=== PATIENT | male | born 1995 | race Caucasian/White ===

== ENCOUNTER 2017-09-24 22:26 | Emergency (ER) | payer BC ==
[~2017-09-24] VITALS: Ht 177.8 cm; Wt 84.7 kg
[2017-09-24 22:31] VITALS: TEMP 36.4; Ht 177.8 cm; Wt 84.7 kg
[2017-09-24] MEDS ORDERED: KETOROLAC TROMETHAMINE 30 MG/ML VIAL IV STA (23:16)
[2017-09-24] MEDS ORDERED: LORAZEPAM 2 MG/ML 1 ML VIAL IV STA (23:16)
[2017-09-24] MEDS ORDERED: SODIUM CHLORIDE 0.9% 1000ML 1,000 ML IV STA (23:16)
--- NOTE | 2017-09-24 23:29 | EMERGENCY ROOM VISIT NOTE ---
History Report prepared by Donya: Faye Pyle Under the Supervision of: Dr. Paul Finley M.D. First contact with patient: 23:03 Chief Complaint: FACIAL PAIN/INJURY Stated Complaint: LEFT SIDE OF FACE/NECK HURTS History of Present Illness The patient is a 22 year old male who presents to the Emergency Room with complaints of left-sided "throbbing" neck pain. He states that a few weeks ago he strained his neck and believed that it fixed itself. He then states that he was lifting weights earlier today and began to notice that he was unable to turn his head to the right and he had a "throbbing" pain on the left side of his neck. The patient states that he feels a pressure in his head and ear, and feels the pain radiating to his shoulder and jaw. He ignored this pain until he was starting to go to bed and began to feel "funny," have a headache, and "feel slow." The patient denies any nausea, vomiting, double vision, pulsating vision , or back pain. He also denies taking a lot of aspirin or ibuprofen recently. He states that he does have a family history of hypertension. He reports previously having a tonsillectomy several years ago, and also denies any allergies. Source of History: patient Onset: today Position: neck Quality: other (throbbing) Modifying Factors (Worsening): movement (to the right) Associated Symptoms: + headache, No nausea, No vomiting, No back pain Note: additional symptoms: unable to turn head to the right, pressure in ear, radiating pain to the shoulder and jaw, feeling "funny" and "slow." Review of Systems See HPI for pertinent positives & negatives. A total of 10 systems reviewed and were otherwise negative. Family History FHx: hypertension Social History Smoking Status: Never Smoker Marital Status: in relationship Housing Status: lives with significant other Occupation Status: [employer] student Current/Historical Medications Scheduled PRN Diazepam (Valium), 5-10 TAB PO Q6H PRN for Muscle Spasms Allergies Coded Allergies: No Known Allergies (Unverified , 09/24/17) Physical Exam Vital Signs Date Time Temp Pulse Resp B/P (MAP) Pulse Ox O2 Delivery O2 Flow Rate FiO2 09/25/17 00:45 79 16 135/60 97 09/24/17 23:56 76 16 126/71 99 Room Air 8/13/18 22:31 36.4 67 18 157/90 100 Room Air Physical Exam GENERAL: Patient is anxious appearing and in mild distress. EYES: No scleral icterus, unremarkable pupils. ENT: Mucous membranes moist, no nasal congestion. NECK: No masses appreciated, no meningismus, trachea is midline. Spasm of the left SCM, unable to turn head to the right, can turn to the left. RESPIRATORY: No dyspnea. Clear to auscultation and equal bilaterally. No wheeze , no rhonchi. CARDIOVASCULAR: Regular rate and rhythm. No murmurs, rubs, gallops appreciated. EXTREMITIES: Normal motion all extremities, no cyanosis, no edema. NEUROLOGIC: Alert and oriented, no acute motor or sensory deficits, no focal weakness, cranial nerves grossly intact. SKIN: No rash, no jaundice, no diaphoresis. Medical Decision & Procedures ER Provider Diagnostic Interpretation: Stat Rad Radiology results and stated below per my review and radiologist interpretation: CT HEAD: FINDINGS: No intracranial hemorrhage, abnormal intra- or extra-axial collections or parenchymal lesions are seen. The shape and configuration of the cortical sulci, basal cisterns and ventricles are within normal limits. The pringle -white differentiation is preserved. No evidence of mass effect, midline shift, or edema. The osseous structures are unremarkable. The visualized portions of the paranasal sinuses are clear. IMPRESSION: Normal non-contrast CT scan of the head. CTA head Findings:: Dominant left vertebral artery. There appear to be bilateral posterior communicating arteries. Normal appearance of distal internal carotid arteries and middle cerebral arteries. Normal appearance to the anterior cerebral arteries. No evidence for intracranial stenosis. No evidence of intracranial thrombosis. No evidence for vascular malformation. No evidence for aneurysm. Impression: Unremarkable CTA of the head Radiologist: Jose Armando Yusuf MD CTA NECK: FINDINGS: The aortic arch and proximal great vessels are unremarkable. The bilateral common, internal and external carotid arteries are within normal limits as are the vertebral arteries. There is a dominant left vertebral artery. Visualized portions of the lung apices are clear. Soft tissues and osseous structures are unremarkable. IMPRESSION: No evidence of dissection or high grade stenosis. Radiologist: Jose Armando Yusuf MD Laboratory Results Test 09/24/17 23:29 Bedside Hemoglobin 14.6 g/dl (14.0-18.0) Bedside Hematocrit 43 % (42-52) Bedside Sodium 141 mEq/L (135-144) Bedside Potassium 3.3 mEq/L (3.3-5.0) Bedside Chloride 102 mEq/L (101-112) Bedside Total CO2 25 mEq/l (24-31) Anion Gap 18.0 mmol/L (16-25) Bedside Blood Urea Nitrogen 19 mg/dl (7-18) Bedside Creatinine 1.2 mg/dl (0.6-1.3) Bedside Glucose (other) 81 mg/dl (70-99) Bedside Ionized Calcium (Sarahy) 1.12 mmol/l (1.12-1.32) Laboratory results as reviewed by me. Medications Administered Medications (Trade) Dose Ordered Sig/Leobardo Route Start Time Stop Time Status Last Admin Dose Admin Ketorolac Tromethamine (Toradol Inj) 30 mg NOW STAT IV 09/24/17 23:16 09/24/17 23:18 DC 09/24/17 23:28 30 MG Sodium Chloride 1,000 ml @ 999 mls/hr Q1H1M STAT IV 09/24/17 23:16 09/25/17 00:16 DC 09/24/17 23:55 999 MLS/HR Lorazepam (Ativan Inj) 1 mg NOW STAT IV 09/24/17 23:16 09/24/17 23:18 DC 09/24/17 23:28 1 MG Lorazepam (Ativan Inj) 1 mg NOW STAT IV 09/25/17 00:00 09/25/17 00:01 DC 09/25/17 00:06 1 MG ED Course 2306: The patient was evaluated in room C6. A complete history and physical exam was performed. 0003: I checked on the patient and he is resting. He is able to move his neck to the right slightly and his pain is easing up. Will give more Ativan for his pain. 0043: I checked on the patient, he feels much better and is okay with going home. Medical Decision 22 yr old male with left SCM pain, left sided headache and lightheadedness after feeling sudden pain left this evening. Started mildly 2 weeks ago with heavy lifting. With headache and lightheaded felt that imaging required to rule out dissection rather than just calling scm strain right off. No swelling , no fever, no redness to suspect infection. Breathing and swallowing without difficulty. CTA Neck/Head negative for acute findings. Patient given IV Ativan x 2 and IV Toradol with IV NSS and he is feeling much improved. Discussed rest and fluids, NSAIDs/Tylenol and compresses. Reviewed symptoms requiring RTED. Will given limited Valium for spasm and reviewed restrictions of this. [place] Drug Monitoring Program Search Results: patient reviewed within database, no issues identified Head Trauma GCS Score: 15 Medication Reconcilliation Current Medication List: was personally reviewed by me Blood Pressure Screening Patient's blood pressure: Elevated blood pressure Blood pressure disposition: Elevated BP felt to be situational Impression Primary Impression: Torticollis, acute Additional Impression: Strain of sternocleidomastoid muscle Scribe Attestation The scribe's documentation has been prepared under my direction and personally reviewed by me in its entirety. I confirm that the note above accurately reflects all work, treatment, procedures, and medical decision making performed by me. Departure Information Dispostion Home / Self-Care Prescriptions Diazepam (VALIUM) 5 Mg Tab 5-10 TAB PO Q6H Y for Muscle Spasms, #12 TAB Prov: Paul Finley M.D. 09/25/[address] [facility] Patient Instructions My [facility] Additional Instructions Avoid heavy lifting or turning neck quickly over the next week. Apply warm compresses periodically to help with muscle spasm. Return if swelling, rash, difficulty swallowing/speaking, weakness in arms/legs , or other concerning symptoms. You have received a benzodiazepine pain medication prescription. These medications may cause drowsiness and should not be used with other sedative medications. Do not drive, drink alcohol, perform dangerous activities, nor make important decisions after taking these medications. terminal computer operator use or inappropriate use may lead to addiction. Problem Qualifiers Additional Impression: Strain of sternocleidomastoid muscle Encounter type: initial encounter Qualified Codes: S16.1XXA - Strain of muscle, fascia and tendon at neck level, initial encounter
[2017-09-24 23:38] LABS: ISTAT CREATININE 1.2 mg/dl (0.6-1.3); ISTAT IONIZED CALCIUM 1.12 mmol/l (1.12-1.32); ISTAT POTASSIUM 3.3 mEq/L (3.3-5.0)
[2017-09-24] MEDS ORDERED: OPTIRAY 320 IV PRN (23:45)
[2017-09-25] MEDS ORDERED: LORAZEPAM 2 MG/ML 1 ML VIAL IV STA
[2017-09-25] MEDS ORDERED: DIAZ5TAB PO (00:34)
[2017-09-25 00:45] VITALS: BP 135/60; PULSE 79; O2SAT 97
--- NOTE | 2017-09-25 07:13 | DIAGNOSTIC IMAGING REPORT ---
CT ANGIOGRAM OF THE NECK CLINICAL HISTORY: Headache. Lightheadedness. Left-sided neck pain. Lifting injury. COMPARISON STUDY: No priors. TECHNIQUE: Following the IV administration of 117 of Optiray 320, CT angiogram of the neck was performed from the aortic arch to the skull base. Images are reviewed in the axial, sagittal, and coronal planes. 3-D MIPS images are created and assessed. IV contrast was administered without complication. All measurements were calculated based on NASCET criteria. A dose lowering technique was utilized adhering to the principles of ALARA. CT DOSE: 1436.67 mGy.cm FINDINGS: Thoracic aorta: Visualized portions of the thoracic aorta are normal in caliber. The aortic arch demonstrates standard 3-vessel anatomy. Right carotid arterial system: The right common carotid artery is widely patent, as are the right internal and external carotid arteries. No dissection is seen. Left carotid arterial system: The left common carotid artery is widely patent, as are the left internal and external carotid arteries. No dissection is seen. Vertebral arteries: The vertebral arteries are widely patent bilaterally noting left sided dominance. No dissection is seen. Subclavian arteries: Widely patent bilaterally. Intracranial vasculature: The visualized intracranial vessels at the skull base appear patent. Jugular veins: Widely patent bilaterally. Brain parenchyma: The visualized brain parenchyma the skull base is within normal limits. Lung apices: Partially visualized upper lobe lung parenchyma appears clear noting an accessory azygous fissure. Soft tissues: The visualized pharyngeal soft tissues are normal in appearance noting angiographic phase technique. The oropharyngeal airway appears widely patent. The salivary and thyroid glands are normal in appearance. No cervical lymphadenopathy is seen. Skeletal structures: The visualized calvarium at the skull base appears intact. The imaged cervical spine is within normal limits. Sinuses and mastoids: There is a 1.6 cm retention cyst in the right maxillary antrum. Trace mucosal thickening seen within both maxillary sinuses. The remaining paranasal sinuses are clear as visualized. The mastoid air cells are well pneumatized. IMPRESSION: Unremarkable CT angiogram of the neck. Electronically signed by: Jenaro Michaud M.D. 09/25/2017 7:11 AM Dictated Date/Time: 09/25/2017 7:03 AM
--- NOTE | 2017-09-25 07:13 | DIAGNOSTIC IMAGING REPORT ---
ANGIOGRAPHY HEAD COMBO CLINICAL HISTORY: 22 years-old Male presenting with popping sensation in the left neck after lifting weight, now with lightheadedness and headache. TECHNIQUE: Multidetector CT angiography of the head was performed before and after the administration of intravenous contrast. 3-D volumetric and/or maximum intensity projection (MIP) images were subsequently reconstructed for review. IV contrast: 117 mL of Optiray 320. A dose lowering technique was used consistent with the principles of ALARA (as low as reasonably achievable). COMPARISON: None. CT DOSE (mGy.cm): The estimated cumulative dose is 1436.67. FINDINGS: Customer Training Specialist topogram: Unremarkable. NONCONTRAST CT HEAD: Ventricles and sulci normal in size. Brain parenchyma normal in appearance with preserved vivar-white differentiation. No mass effect or midline shift. No hemorrhage or acute territorial infarct. No extra-axial fluid collection. Paranasal sinuses and mastoid air cells clear. Calvarium intact. CTA HEAD: Anterior circulation: Intracranial portions of the internal carotid arteries patent to the level of the termini. Anterior and middle cerebral arteries patent. Anterior communicating artery patent. Posterior circulation: Codominant vertebral arteries. Intradural portions of the vertebral arteries patent. Posterior inferior cerebellar arteries patent. Basilar artery patent. Anterior inferior cerebellar arteries poorly visualized. Superior cerebellar and posterior cerebral arteries patent. Posterior communicating arteries patent. Dural venous sinuses: Patent. Other: Allowing for the phase of contrast, brain parenchyma within normal limits. Calvarium intact. Upper cervical spine normal. IMPRESSION: 1. No acute intracranial abnormality. 2. No evidence of aneurysm, focal vessel occlusion, or significant stenosis of the intracranial arteries. Electronically signed by: Royal Barr M.D. 09/25/2017 7:12 AM Dictated Date/Time: 09/25/2017 6:55 AM
== END 2017-09-25 00:45 | disposition home or self-care (01) ==
LOC: C.EDB 22:29 → C.EDC 09-25 00:45
DX: S16.1XXA Strain of muscle, fascia and tendon at neck level, initial encounter (principal); M43.6 Torticollis; X50.0XXA Overexertion from strenuous movement or load, initial encounter

== ENCOUNTER 2017-10-09 00:56 | Emergency (ER) | payer OTHER, BC ==
[~2017-10-09] VITALS: Ht 177.8 cm; Wt 82.8 kg
[2017-10-09 01:00] VITALS: TEMP 36.6; Ht 177.8 cm; Wt 82.8 kg
[2017-10-09] MEDS ORDERED: KETOROLAC TROMETHAMINE 30 MG/ML VIAL IV STA (01:44)
--- NOTE | 2017-10-09 02:01 | EMERGENCY ROOM VISIT NOTE ---
History Report prepared by Donya: Francy Christiansen Under the Supervision of: Dr. Rashida Arellano D.O. First contact with patient: 01:15 Chief Complaint: NECK PAIN Stated Complaint: NECK PROBLEMS/PAIN,HARD TIME SWALLOWING,HEADACHE History of Present Illness The patient is a 22 year old male who presents to the Emergency Room with complaints of a persistent headache that started 3.5 hours ago. The patient rates his pain a 7/10 in severity. He states light worsens his headache. The patient reports he has had a history of neck problems for the past month. He notes he was straining himself at the gym and 2 weeks ago he was doing some moderate lifting. He states he then started to get a "weird" feeling in his neck and jaw and had difficulty swallowing. He reports he was seen in the ED before and was given a muscle relaxer but did not take it because he felt "screwy." He notes he has felt fine the past two weeks but was doing a handful of sit ups at the gym today and felt a "bulge" in his neck so he stopped. He notes he has had pressure building in his head all night. The patient states he now has throbbing pain in the left side of his neck and a numbness on left side of jaw. He states he is having the worst headache he has ever had. He reports he has not taken any medications for the pain. He denies a history of migraines. He denies fever, chills, abdominal pain, or nausea. The patient reports he has been under more stress recently since he has recently started graduate school. Source of History: patient Onset: 3.5 hours ago Position: head Symptom Intensity: 7/10 Quality: pressure Timing: other (persistent) Modifying Factors (Worsening): other (light) Associated Symptoms: + neck pain, No fevers, No chills, No nausea, No abdominal pain Review of Systems See HPI for pertinent positives & negatives. A total of 10 systems reviewed and were otherwise negative. Past Medical & Surgical Patient reports no past medical or surgical history. Family History FHx: hypertension Social History Smoking Status: Never Smoker Marital Status: in relationship Housing Status: lives with significant other Occupation Status: [employer] student Current/Historical Medications No Active Prescriptions or Reported Meds Allergies Coded Allergies: No Known Allergies (Unverified , 10/09/17) Physical Exam Vital Signs Date Time Temp Pulse Resp B/P (MAP) Pulse Ox O2 Delivery O2 Flow Rate FiO2 10/09/17 02:33 78 20 118/72 98 10/09/17 01:00 36.6 67 18 146/84 98 Room Air Physical Exam General: Significantly photophobic. HEENT: Head - normocephalic and atraumatic Pupils are equal, round, 2mm and reactive to light. Extraocular eye muscles are intact, and sclera are anicteric. Nose - moist nasal mucosa without discharge. Mouth - moist buccal mucosa. Oropharynx is nonerythematous and there is no tonsillar exudate or edema noted. Neck: Supple; no JVD, nuchal rigidity, cervical lymphadenopathy. Heart: Regular rate and rhythm. There is a normal S1 and S2 with no murmurs, clicks, or gallops appreciated. Lungs: Clear to auscultation bilaterally with no wheezes, rales, or rhonchi. Abdomen: Soft, completely nontender, nondistended, with good bowel sounds. There are no palpable pulsatile masses or hepatosplenomegaly. There is no guarding, rigidity, or rebound noted. Extremities: No evidence of cyanosis, clubbing, or edema. There are easily palpable peripheral pulses. Skin: warm and dry with good turgor and no rashes. Medical Decision & Procedures Medications Administered Medications (Trade) Dose Ordered Sig/Leobardo Route Start Time Stop Time Status Last Admin Dose Admin Ketorolac Tromethamine (Toradol Inj) 30 mg NOW STAT IV 10/09/17 01:44 10/09/17 01:45 DC 10/09/17 01:44 30 MG Procedure Toradol Inj 30 mg IV. ED Course 0115: Past medical records reviewed. The patient was evaluated in room B11B. A complete history and physical exam was performed. 0144: Ordered Toradol Inj 30 mg IV. 0255: I reevaluated the patient. He states his pain has resolved. He notes he still has some sensation in the left side of his neck. I discussed CTA results of his head and neck with him. I recommended he follow up with health center. The patient is ready for discharge. Medical Decision The patient is a 22 year old male who presents to the Emergency Department with a headache. Differential diagnosis includes subarachnoid hemorrhage, migraine, cerebral aneurysm. The patient appears significantly photophobic and has moderate frontal head pain. Patient describes feeling of fullness in the left side of his neck. Because of the patient's significant photophobia and head pain, it seems the patient may be suffering from an acute migraine. The patient had complete relief of his symptoms with the Toradol. Patient was told to follow-up with his PCP for referral if the left-sided neck pain persists. Medication Reconcilliation Current Medication List: was personally reviewed by me Blood Pressure Screening Patient's blood pressure: Normal blood pressure Impression Primary Impression: Frontal headache Additional Impression: Neck pain on left side Scribe Attestation The scribe's documentation has been prepared under my direction and personally reviewed by me in its entirety. I confirm that the note above accurately reflects all work, treatment, procedures, and medical decision making performed by me. Departure Information Dispostion Home / Self-Care Prescriptions No Active Prescriptions or Reported Meds Referrals No Doctor, Assigned (PCP) Patient Instructions My [facility] Additional Instructions Follow up at [facility] if headaches or episodes of neck pain continue Rest. Avoid strenuous activity until follow up. If you start to develop a headache or sensitivity to light - take ibuprofen - 800mg with food Problem Qualifiers
[2017-10-09 02:33] VITALS: BP 118/72; PULSE 78; O2SAT 98
== END 2017-10-09 02:34 | disposition home or self-care (01) ==
LOC: C.EDB 00:57
DX: R51 Headache (principal); M54.2 Cervicalgia